=== PATIENT | male | born 1945 | race Caucasian/White ===

== ENCOUNTER 2016-09-01 14:00 | Outpatient (RCR) | payer MEDICARE, OTHER ==
[~2016-09-01 14:00] MED LIST: AMIODARONE HCL200 MG PO; GABAPENTIN100 MG PO; GABAPENTIN300 MG PO; LIORESAL10 MG PO; METOPROLOL SUCC25 MG PO; QUETIAPINE FUMA50 MG PO; SYNTHROID25 MCG PO; VESICARE10 MG PO; ZESTRIL5 MG PO; [UNRECOGNIZED DRUG - OTHER] BC
--- NOTE | 2016-09-02 00:45 | Hyperbaric Consultation ---
REASON FOR EVALUATION: Hyperbaric oxygen. HISTORY OF PRESENT ILLNESS: The patient is a 70-year-old very pleasant male, who presents for evaluation for radiation cystitis in the patient with persistent hematuria and he is here for evaluation. The patient has some discomfort and pain. The patient admits to history of prostate cancer back to 2009 with radiation for approximately two months. The patient has had persistent hematuria as described above. No fevers or chills. No other significant complaints. The patient denies any significant history of ear or nasal issues. The patient, however, does admit to mild history of COPD. PAST MEDICAL HISTORY: Notable for pacemaker, prostate cancer, history of prostatectomy, history of lung resection, history of hypertension, history of atrial fibrillation, history of reflux disease, and history of chronic renal insufficiency. PAST SURGICAL HISTORY: Notable for total knee replacement. MEDICATIONS: Reviewed. ALLERGIES: Reviewed. SOCIAL HISTORY: The patient is currently retired and has a history of smoking, but quit five to six years prior. No alcohol use at present. FAMILY HISTORY: Otherwise, noncontributory. REVIEW OF SYSTEMS: Otherwise, negative with the exception of the above. PHYSICAL EXAMINATION: GENERAL: The patient is a pleasant male, in no significant distress. VITAL SIGNS: Blood pressure 143/81, pulse rate 75, temperature 98.1 degrees, respiratory rate 18, and oxygen saturation 98%. HEENT: Fairly negative. Oropharynx is moist. Tympanic membranes are visualized and are negative. Nasal passages are negative as well. NECK: Supple. No adenopathy. LUNGS: Clear with adequate air entry. CARDIAC: Normal S1 and S2. Slightly irregular without murmurs or rubs. ABDOMEN: Soft. No tenderness. No suprapubic discomfort at present. EXTREMITIES: No cyanosis, clubbing, or edema. NEUROLOGIC: Grossly nonfocal. The patient is alert and ambulator IMPRESSION: Radiation cystitis, persistent hematuria, mild chronic obstructive pulmonary disease, history of atrial fibrillation, pacemaker, history of prostate cancer, and former smoker. RECOMMENDATIONS: The patient appears to be an appropriate candidate for hyperbaric oxygen . The patient should proceed with 40 treatments with 90-minute intervals, at two atmospheres with a followup evaluation at the completion. The patient is agreeable to proceed. Procedure described in detail and we will obtain pulmonary function tests prior to proceeding to assess the patient's degree of obstructive lung disease. Yovani Sherman M.D. DR: KEITH JOB#: [id number] CC: Hyperbaric Oxygen Chamber/Wound Care [facility]
== END 2016-09-19 | disposition home or self-care (01) ==
LOC: WCC 14:00
DX: N30.41 Irradiation cystitis with hematuria (principal); N30.91 Cystitis, unspecified with hematuria; Z85.46 Personal history of malignant neoplasm of prostate; I11.9 Hypertensive heart disease without heart failure
CPT/HCPCS: G0463